=== PATIENT | male | born 1935 | race Caucasian/White ===

== ENCOUNTER → 2017-02-24 | Outpatient (CLI) | payer MEDICAID, MEDICARE, OTHER ==
--- NOTE | 2017-02-24 11:24 | PCVCIMAG ---
EXAM: BILATERAL LOWER EXTREMITY ARTERIAL DUPLEX INDICATION: Peripheral arterial disease. Nonhealing ulcers lower legs. FINDINGS: Right Leg: Satisfactory arterial waveform in the common femoral and profunda femoral artery. Elevated systolic velocity mid superficial femoral artery of 313 cm/s consistent with 80% stenosis. A second area of velocity elevation distal superficial femoral artery of 345 cm/s also consistent with 80% stenosis. Popliteal artery is patent. The anterior tibial, peroneal, and posterior tibial arteries appear patent although they demonstrate blunted arterial waveforms compatible with the more proximal stenoses. Left Leg: Satisfactory arterial waveform in the common femoral and profunda femoral artery. Elevated systolic velocity proximal/mid superficial femoral artery of 415 cm/s consistent with 90% stenosis. The popliteal artery is patent. The anterior tibial and posterior tibial arteries are patent. Subtotal occlusion proximal peroneal artery. IMPRESSION: Focal areas of 80% stenosis in the mid and distal right superficial femoral artery. 90% stenosis proximal/mid left superficial femoral artery. Subtotal occlusion proximal left peroneal artery. LOC:[id number]
== END | disposition home or self-care (01) ==
LOC: PCVCIMAG 10:13
PROVIDERS: ATTEND Nuclear Medicine Nuclear Cardiology
DX: I70.203 Unspecified atherosclerosis of native arteries of extremities, bilateral legs (principal); I77.9 Disorder of arteries and arterioles, unspecified; L97.929 Non-pressure chronic ulcer of unspecified part of left lower leg with unspecified severity; I10 Essential (primary) hypertension; K21.9 Gastro-esophageal reflux disease without esophagitis; G71.0 Muscular dystrophy; E78.5 Hyperlipidemia, unspecified; F41.8 Other specified anxiety disorders; Z99.3 Dependence on wheelchair; Z90.49 Acquired absence of other specified parts of digestive tract; Z87.891 Personal history of nicotine dependence; Z79.899 Other long term (current) drug therapy
CPT/HCPCS: 36415; 93925; G0463

== ENCOUNTER → 2017-02-26 | Outpatient (CLI) | payer MEDICARE ==
[~2017-02-26] MED LIST: ASPIRIN 325 MG TABLET ONE; CLOPIDOGREL BISULFATE 75 MG TABLET ONE; DIAZEPAM 10 MG TABLET. ONE; EPTIFIBATIDE BOLUS 2,000 MCG/ML 10ML VIAL. IV ONE; HEPARIN SODIUM 5,000 UNIT/ML VIAL for PCVC. ONE; IODIXANOL 270 MG/ML 100 ML VIAL. ONE; IV NORMAL SALINE 1000ML BAG 1,000 ML ONE; IV NORMAL SALINE 500ML BAG 500 ML ONE; LIDOCAINE 1% Multi-Dose 20 ML VIAL. ONE; MIDAZOLAM HCL/PF 2 MG/2 ML VIAL. ONE; fentaNYL PF VIAL 100 MCG/2 ML VIAL ONE; hydrALAZINE 20 MG/ML VIAL. ONE
--- NOTE | 2017-02-26 13:33 | PCVCINTER ---
EXAM: 1. AORTOGRAM AND BILATERAL LOWER EXTREMITY RUNOFF ANGIOGRAM 2. BILATERAL RENAL ANGIOGRAPHY 3. LEFT SUPERFICIAL FEMORAL ARTERY ATHERECTOMY AND DRUG COATED BALLOON ANGIOPLASTY 4. LEFT TIBIOPERONEAL TRUNK/POSTERIOR TIBIAL ARTERY ATHERECTOMY 5. SECONDARY THROMBECTOMY LEFT TIBIOPERONEAL TRUNK/POSTERIOR TIBIAL ARTERY 6. LEFT PERONEAL ARTERY ATHERECTOMY. INDICATION: Peripheral arterial disease. Nonhealing ulcer left heel. Hypertension. Renal atherosclerosis. PROCEDURE: Procedure and risks of angiography intervention is appropriate including limb loss stroke and were discussed with the patient's family and consent obtained. The patient's right groin was prepped abnormal sterile fashion. IV conscious sedation was used to procedure with appropriate monitoring for 90 minutes. Ultrasound was used to interrogate the right groin and showed the right common femoral artery to be patent. A permanent spot film was obtained. Under ultrasound guidance access into the right common femoral artery was obtained and a 5 Stateless sheath was placed. Through this a 5 Stateless flush catheter was placed into the abdominal aorta at the level of the renal arteries and AP aortogram was performed. Catheter was positioned at the aortic bifurcation and both oblique views of the pelvis were obtained. Catheter was positioned into the right external iliac artery and right leg runoff angiography was performed. Catheter was exchanged for a visceral catheter was placed into the right renal arteries and right renal angiograms obtained. Catheter was placed into the the left renal arteries and left renal angiograms were obtained. Catheter was advanced to the level of the left external iliac artery and left leg runoff angiography was obtained. Patient was given 4500 units of heparin. A 6 Stateless crossover sheath was placed via the right groin to the level of the left common femoral artery. Atherectomy of the left superficial femoral artery was performed with 0.9 mm Spectranetics laser atherectomy catheter in the standard fashion. Atherectomy of the left tibioperoneal trunk/posterior tibial artery was performed with 0.9 mm Spectranetics laser atherectomy catheter in the standard fashion. Following atherectomy small areas of thrombus were observed and because of this secondary thrombectomy throughout the left tibioperoneal trunk/posterior tibial artery was carried out with mechanical suction thrombectomy catheter in the standard fashion. Minimal debris was removed. Angioplasty of the left tibioperoneal trunk/posterior tibial artery was carried out with a 3.5 mm chocolate focal force balloon. Next angioplasty of the left proximal peroneal artery was carried out with a 3.5 mm chocolate focal force balloon. Following this drug coated balloon angioplasty of the left superficial femoral artery was carried out with a 6 x 80 [employer] Admiral SOLID WASTE FACILITY OPERATOR catheter. Follow-up angiogram was performed. Catheters and wires removed. Sheath was removed and hemostasis obtained using the Exoseal device. No immediate complications. FINDINGS: Aortogram: There are 2 right and one left renal artery. Mild plaque infrarenal abdominal aorta without significant stenosis. Pelvis: Moderate plaque mid right common iliac artery causes only mild stenosis. The left common iliac artery is patent. Both internal iliac arteries are patent. Both external iliac arteries are patent. The right and left common femoral and profunda femoral arteries are patent. Right renal artery: The upper renal artery is smaller in size with mild plaque proximally without evidence of significant stenosis. The lower renal artery is a dominant renal artery with mild plaque proximally but no evidence of significant stenosis. Left renal artery: Minimal plaque proximal vessel. No branch vessel stenosis. Right le% stenosis proximal superficial femoral artery. 95% focal stenosis distal superficial femoral artery. Mild stenosis upper popliteal artery is not flow-limiting. The anterior tibial artery shows occlusion in this mid/distal portion. Areas of 90% stenosis tibioperoneal trunk. 95% stenosis at the origin of the peroneal artery. The posterior tibial artery is the dominant runoff vessel and shows good patency into the plantar arteries. Left le% stenosis proximal superficial femoral artery. Moderate plaquing distal superficial femoral artery without flow-limiting stenosis. Moderate plaque popliteal artery without significant stenosis. 90% stenosis tibioperoneal trunk with 70-80% stenosis in the proximal posterior tibial and peroneal arteries. These vessels otherwise show good patency. The anterior tibial artery has 80% stenosis proximally. Dorsalis pedis is small in size. Left superficial femoral artery: Following procedure above satisfactory patency has been restored. Left tibioperoneal trunk/posterior tibial artery: Following procedure as above good patency has been restored. Left peroneal artery: Following procedure as above good patency is been restored. IMPRESSION: Areas of significant stenosis in the proximal left superficial femoral artery, left tibioperoneal trunk, proximal left posterior tibial artery, and proximal left peroneal artery were treated as above with good patency restored. High-grade focal stenosis in the proximal and in the distal right superficial femoral artery, right tibioperoneal trunk, and at the origin of the right peroneal artery. follow up LOC:[id number]
== END | disposition home or self-care (01) ==
LOC: PCVCINTER 09:00
PROVIDERS: ATTEND Nuclear Medicine Nuclear Cardiology
DX: I70.263 Atherosclerosis of native arteries of extremities with gangrene, bilateral legs (principal); I70.1 Atherosclerosis of renal artery; I10 Essential (primary) hypertension
CPT/HCPCS: 36252; 37186; 37225; 37228; 37229; 75716; 76937; 99152; 99153; C1725; C1751; C1757; C1760; C1769; C1885; C1894; C2623; J0690; J1327; J1644; J2250; J3010; J7030; J7040; Q9966; J0360

== ENCOUNTER → 2017-03-06 | Outpatient (CLI) | payer MEDICARE ==
[~2017-03-06] MED LIST changes: -ASPIRIN 325 MG TABLET ONE; -CLOPIDOGREL BISULFATE 75 MG TABLET ONE; +LIDOCAINE 1%/EPI 1:100,000 20 ML VIAL. ONE
--- NOTE | 2017-03-06 14:58 | PCVCIMAG ---
EXAM: DUPLEX ULTRASOUND OF THE LEFT GROIN INDICATION: Groin swelling and pain. FINDINGS: No pseudoaneurysm is present. The common femoral artery and vein are patent. No arteriovenous fistula is seen. IMPRESSION: Study is negative for pseudoaneurysm. LOC:[id number]
--- NOTE | 2017-03-06 16:29 | PCVCINTER ---
EXAM: 1. RIGHT COMMON ILIAC ARTERY STENT PLACEMENT 2. RIGHT SUPERFICIAL FEMORAL ARTERY ATHERECTOMY AND DRUG COATED BALLOON ANGIOPLASTY 3. RIGHT TIBIOPERONEAL TRUNK/RIGHT POSTERIOR TIBIAL ARTERY ATHERECTOMY AND ANGIOPLASTY 4. SECONDARY THROMBECTOMY RIGHT TIBIOPERONEAL TRUNK/RIGHT POSTERIOR TIBIAL ARTERY 5. RIGHT PERONEAL ARTERY ANGIOPLASTY INDICATION: Peripheral arterial disease. Coronary artery disease. Nonhealing ulcer right lower extremity. Hypertension. Renal atherosclerosis. PROCEDURE: Procedure and risks of angiography intervention is appropriate including limb loss stroke and were discussed with the patient's family and consent obtained. The patient's left groin was prepped abnormal sterile fashion. IV conscious sedation was used to procedure with appropriate monitoring for 90 minutes. Ultrasound was used to interrogate the left groin and showed the left common femoral artery to be patent. A permanent spot film was obtained. Under ultrasound guidance access into the left common femoral artery was obtained and a 5 Irish sheath was placed. Through this a 6 Irish crossover sheath was placed via the left groin to the level of the right common femoral artery. Atherectomy of the right tibioperoneal trunk/posterior tibial artery was performed with 0.9 mm Spectranetics laser atherectomy catheter in the standard fashion. Atherectomy of the right right superficial femoral artery was performed with 0.9 mm Spectranetics laser atherectomy catheter in the standard fashion. Following atherectomy small areas of thrombus were observed and because of this secondary thrombectomy throughout the right tibioperoneal trunk/posterior tibial artery was carried out with mechanical suction thrombectomy catheter in the standard fashion. Minimal debris was removed. Angioplasty of the right tibioperoneal trunk/posterior tibial artery was carried out with a 3.0 x 120 chocolate focal force balloon. Angioplasty of the proximal right peroneal artery was carried out with a 2.5 x 40 [employer]is sleek SENIOR LOAN OFFICER catheter. Following this drug coated balloon angioplasty of the right superficial femoral artery was carried out with a 6 x 80 Medtronic Admiral SENIOR LOAN OFFICER catheter distally and a 6 x 40 Medtronic Admiral SENIOR LOAN OFFICER catheter proximally. Stent placement across the areas of high-grade stenosis in the right common iliac artery was carried out with a 10 x 40 Smart control stent with subsequent dilatation to 8.0 mm. Follow-up angiogram was performed. Catheters and wires removed. Sheath was removed and hemostasis obtained using the FISH device. No immediate complications. FINDINGS: Right common iliac artery: Following procedure as above vessel shows good patency. Right superficial femoral artery: Following procedure as above vessel shows good patency. Right tibioperoneal trunk/posterior tibial artery: Following procedure as above vessel shows good patency. Right peroneal artery: Following procedure as above vessel shows good patency. IMPRESSION: Areas of significant stenosis in the right common iliac artery, right superficial femoral artery, right tibioperoneal trunk, right posterior tibial artery, and proximal right peroneal artery were treated as above with satisfactory patency restored. LOC:[id number]
== END | disposition home or self-care (01) ==
LOC: PCVCIMAG 10:46
PROVIDERS: ATTEND Nuclear Medicine Nuclear Cardiology
DX: I70.239 Atherosclerosis of native arteries of right leg with ulceration of unspecified site (principal); L97.919 Non-pressure chronic ulcer of unspecified part of right lower leg with unspecified severity; I74.5 Embolism and thrombosis of iliac artery; I70.1 Atherosclerosis of renal artery; I10 Essential (primary) hypertension; I70.8 Atherosclerosis of other arteries; I25.10 Atherosclerotic heart disease of native coronary artery without angina pectoris
CPT/HCPCS: 36252; 37186; 37221; 37225; 37228; 37229; 75716; 76937; 93926; 99152; 99153; C1725; C1751; C1757; C1769; C1876; C1885; C1894; C2623; J1327; J1644; J2250; J3010; J3490; J7030; J7040; Q9966; J0360